=== PATIENT | male | born 1990 | race African-American/Black ===

== ENCOUNTER 2016-11-05 17:16 | Emergency (ER) | payer OTHER ==
[~2016-11-05] VITALS: Ht 182.9 cm; Wt 63.5 kg
--- NOTE | 2016-11-05 19:36 | REP ---
Clinical: Mid to lower back pain . Technique: AP, lateral, bilateral oblique, and coned-down views. Findings: Alignment and lordosis is maintained. The vertebral bodies including transverse process and spinous processes are intact and normal. There is no evidence for acute fracture / compression injury or subluxation. No evidence for spondylolysis or spondylolisthesis. No significant degenerative change is noted. Impression: Normal lumbosacral spine radiograph series. Signed by Osiel Fields MD 11/05/2016 07:27 P
--- NOTE | 2016-11-05 19:36 | REP ---
Clinical: Mid back pain. Technique: AP, lateral, and swimmers views. Findings: Alignment and kyphosis is maintained. Vertebral bodies intact. No acute fracture / compression injury or subluxation. No degenerative changes. Paravertebral soft tissues are normal. Impression: Normal thoracic spine series. Signed by Osiel Fields MD 11/05/2016 07:28 P
[2016-11-05] MEDS ORDERED: PRED20TA PO (19:45)
[2016-11-05] MEDS ORDERED: VALI5TAB PO (19:45)
[2016-11-05 19:58] VITALS: BP 123/65
== END 2016-11-05 20:00 | disposition home or self-care (01) ==
LOC: M ED 17:23
DX: M54.5 Low back pain (principal); M54.6 Pain in thoracic spine

== ENCOUNTER 2016-11-24 20:42 | Emergency (ER) | payer OTHER ==
[~2016-11-24] VITALS: Ht 180.3 cm; Wt 63.5 kg
[~2016-11-24 20:42] MED LIST: PRED20TA PO; VALI5TAB PO
[2016-11-24 20:43] VITALS: BP 135/78
== END 2016-11-24 22:42 | disposition left against medical advice (07) ==
LOC: M ED 22:33
DX: Z20.2 Contact with and (suspected) exposure to infections with a predominantly sexual mode of transmission (principal); Z53.21 Procedure and treatment not carried out due to patient leaving prior to being seen by health care provider